=== PATIENT | female | born 1960 | race Caucasian/White ===

== ENCOUNTER 2021-04-05 22:43 | Inpatient (IN) | payer MEDICARE, OTHER ==
[~2021-04-05] VITALS: Ht 167.6 cm; Wt 82.1 kg
[~2021-04-05 22:43] MED LIST: BACTRIM DS TAB1 EACH PO; CELEXA40 MG PO; CLARITIN10 MG PO; CLEOCIN HCL300 MG PO; ECOTRIN81 MG PO; FARXIGA10 MG PO; FEOSOL325 MG PO; GLUCOPHAGE1000 MG PO; LANTUS100 UNIT/1 SQ; LIPITOR TAB 2020 MG PO; NAPROSYN500 MG PO; NEURONTIN800 MG PO; NORCO 7.5-3251 EACH PO; REGLAN5 MG PO; STOOL SOFTENER250 MG PO; VITAMIN D250000 UNIT PO
[2021-04-05 23:46] LABS: HEMOGLOBIN 8.2 gm/dl (12.3-15.3); RED BLOOD COUNT 4.79 M/UL (4.00-5.10); WHITE BLOOD COUNT 4.9 K/UL (4.5-11.0)
[2021-04-06 00:32] LABS: BUN/CREATININE RATIO 8 (0-10)
[2021-04-06 07:30] LABS: HEMOGLOBIN 7.2 gm/dl (12.3-15.3); RED BLOOD COUNT 4.21 M/UL (4.00-5.10); WHITE BLOOD COUNT 5.6 K/UL (4.5-11.0)
[2021-04-06 07:42] LABS: BUN/CREATININE RATIO 12 (0-10)
[2021-04-06] MEDS ORDERED: METOCLOPRAMIDE H5 MG PO (10:23)
[2021-04-06] MEDS ORDERED: METFORMIN HCL1000 M1 PO (10:24)
[2021-04-06] MEDS ORDERED: VALIUM 5 MG TAB5 MG PO (10:24)
[2021-04-06] MEDS ORDERED: TOUJEO MAX300 UNIT/1 SC (10:25)
[2021-04-06] MEDS ORDERED: HUMALOG100 UNIT/3 SC (10:26)
[2021-04-06] MEDS ORDERED: LINZESS72 MCG PO (10:27)
[2021-04-06] MEDS ORDERED: REMERON 15 MG T15 MG PO (10:28)
[2021-04-06] MEDS ORDERED: CREON DR 36,001 EACH PO (10:28)
[2021-04-06] MEDS ORDERED: SYNTHROID 50 M50 MCG PO (10:29)
[2021-04-06] MEDS ORDERED: CARAFATE1 GM PO (10:30)
[2021-04-06] MEDS ORDERED: HYDROCODON-ACE1 EAC2 PO (10:30)
[2021-04-06] MEDS ORDERED: JARDIANCE25 MG PO (10:31)
--- NOTE | 2021-04-06 11:35 | NUR ---
WHEN ARRIVING FOR DAY SHIFT, THE [facility] CONSULTANT NURSE INFORMED ME THAT HE HAD RECENTLY LOST PATIENTS IV ACCESS - THE IV HAD INFILTRATED (BADLY). LOI REPORTED THAT I NO LONGER HAD IV ACCESS AND WOULD NEED TO GET A NEW IV IN HER. PATIENT IS COVID POSITIVE SO WE COULD NOT DO BEDSIDE SHIFT REPORT. WHEN REPORT WAS FINISHED AND [facility] CONSULTANT NURSE WAS GONE, THE PATIENT CALLED OUT STATING THAT HER ARM WAS HURTING FROM THE IV. WHEN I WENT IN TO THE ROOM TO ASSESS HER, THE IV THAT [facility] CONSULTANT STATED WAS INFILTRATED AND NO LONGER THERE, WAS STILL IN HER ARM (RIGHT AC) AND RUNNING POTASSIUM THROUGH IT. I IMMEDIATELY STOPPED THE PUMP AND DISCONNECTED IT FROM THE PATIENT. I ASSESSED PATIENTS ARM AND IV WAS INFILTRATED. PATIENT COMPLAINED OF INTENSE PAIN AND THROBBING. ABOVE THE IV WAS SWELLING THAT I WOULD COMPARE TO THE SIZE OF A BASEBALL. I HAD ANOTHER NURSE, NIKOLAI GARCIA, LOOK AT THE PATIENT TO GET ANOTHER SET OF EYES ON HER. WE IMMEDIATELY CALLED PHARMACY TO ASK WHAT WE COULD DO FOR INFILTRATED POTASSIUM. PHARMACY SUGGESTED WARM COMPRESSES EVERY 15 MINS. I DISCONTINUED THE IV FROM PATIENTS ARM - DRESSED WITH 2X2 AND TAPE. THEN APPLIED A WARM WASHCLOTH TO PATIENTS ARM TO HELP WITH PAIN AND SWELLING. 0930 - I REASSESSED PATIENTS ARM AND THE SWELLING WAS COMPLETELY GONE. PATIENT STATED THERE WAS NO LONGER ANY SORT OF PAIN. WE ALSO HAD NEW IV ACCESS THANKS TO RESOURCE NURSE. A 20G IN THE RIGHT FOREARM.
[2021-04-07 04:08] LABS: RED BLOOD COUNT 4.3 M/UL (4.00-5.10); WHITE BLOOD COUNT 6.1 K/UL (4.5-11.0)
[2021-04-07 04:39] LABS: BUN/CREATININE RATIO 15 (0-10)
[2021-04-07] MEDS ORDERED: NAPROXEN500 MG PO (10:29)
[2021-04-07] MEDS ORDERED: LIPITOR40 MG PO (14:38)
[2021-04-07] MEDS ORDERED: STOOL SOFTENER250 MG PO (14:39)
[2021-04-07] MEDS ORDERED: MULTIVITAMIN1 EACH PO (14:41)
[2021-04-07] MEDS ORDERED: PROTONIX40 MG PO (21:48)
[2021-04-07] MEDS ORDERED: ZANAFLEX4 MG PO (21:52)
[2021-04-08 03:57] LABS: HEMOGLOBIN 8.3 gm/dl (12.3-15.3); RED BLOOD COUNT 4.41 M/UL (4.00-5.10); WHITE BLOOD COUNT 4.9 K/UL (4.5-11.0)
[2021-04-08 04:20] LABS: BUN/CREATININE RATIO 17 (0-10)
--- NOTE | 2021-04-08 07:00 | NUR ---
PATIENT NOTED TO HAVE LOW OXYGEN SATURATION THIS AM. RN ASKED STAFF TO CALL RT TO ADJUST OXYGEN SETTING BUT STAFF CALLED WOOD MILLING MACHINE OPERATOR BY MISTAKE. RN CALLED SWITCHBOARD AND CANCELLED WOOD MILLING MACHINE OPERATOR. PATIENT'S OXYGEN ADJUSTED TO 5 LITERS NASAL CANNULA PER LONG FILLER CIGAR ROLLER MACHINE MD AND PATIENT INSTRUCTED TO UTILIZE INCENTIVE SPIROMETER AND FOCUS ON DEPTH AND RATE OF BREATHING. PATIENT ATTEMPTED INCENTIVE SPIROMETER AND REACHED 250 ML. PATIENT DENIES PAIN AND DISCOMFORT. BED LOCKED AND LOW.
[2021-04-10 05:45] LABS: WHITE BLOOD COUNT 4.9 K/UL (4.5-11.0)
[2021-04-10 05:53] LABS: RED BLOOD COUNT 4.87 M/UL (4.00-5.10)
[2021-04-10 06:01] LABS: BUN/CREATININE RATIO 31 (0-10)
[2021-04-11] MEDS ORDERED: FERROUS SULFAT325 M2 PO (17:42)
[2021-04-11] MEDS ORDERED: LISINOPRIL20 MG PO (17:42)
[2021-04-11] MEDS ORDERED: DEXAMETHASONE 44 MG PO (17:42)
[2021-04-11] MEDS ORDERED: ASPIRIN EC81 MG PO (17:42)
== END 2021-04-11 20:22 | disposition home or self-care (01) | DRG 177 ==
LOC: ER1 22:43 → PROG CARE 04-06 01:51 → MED SURG 4 04-06 01:51 → CDU 04-06 01:51 → PROG CARE 04-06 04:15 → MED SURG 4 04-08 04:30
PROVIDERS: Internal Medicine; Internal Medicine Infectious Disease; Physician Assistant; ADMIT Internal Medicine
PROC: 8E0ZXY6 Isolation (ICD-10-PCS; principal; 2021-04-06)
PROC: 3E0333Z Introduction of Anti-inflammatory into Peripheral Vein, Percutaneous Approach (ICD-10-PCS; 2021-04-06)
PROC: XW033E5 Introduction of Remdesivir Anti-infective into Peripheral Vein, Percutaneous Approach, New Technology Group 5 (ICD-10-PCS; 2021-04-06)
DX: U07.1 COVID-19 (principal); J12.82 Pneumonia due to coronavirus disease 2019; J96.01 Acute respiratory failure with hypoxia; E11.65 Type 2 diabetes mellitus with hyperglycemia; D50.9 Iron deficiency anemia, unspecified; E87.6 Hypokalemia; I10 Essential (primary) hypertension; E86.0 Dehydration; E11.42 Type 2 diabetes mellitus with diabetic polyneuropathy; I95.9 Hypotension, unspecified; E78.5 Hyperlipidemia, unspecified; Z96.611 Presence of right artificial shoulder joint; Z85.3 Personal history of malignant neoplasm of breast; Z90.10 Acquired absence of unspecified breast and nipple; Z79.82 Long term (current) use of aspirin; Z79.4 Long term (current) use of insulin; Z79.899 Other long term (current) drug therapy; Z79.84 Long term (current) use of oral hypoglycemic drugs
CPT/HCPCS: 0240U; 36415; 36430; 71045; 80048; 80053; 82550; 82553; 82728; 82803; 82962; 83036; 83540; 83550; 83605; 83735; 83880; 84100; 84443; 84484; 85018; 85025; 85379; 85610; 85652; 85730; 86140; 86850; 86900; 86901; 86920; 87040; 93005; 94760; 96374; 97116; 97116-GP-CQ; 97162; 99285; J0248; J0696; J1100; J1650; J1756; J1940; J2405; J3480; J7030; P9016